=== PATIENT | male | born 1950 | race Two or more races ===

== ENCOUNTER 2020-07-28 10:45 | Inpatient (IN) | payer OTHER ==
[~2020-07-28] VITALS: Ht 165.1 cm; Wt 69.4 kg
[2020-07-28] MEDS ORDERED: TAMS0.4C PO (12:28)
[2020-07-28] MEDS ORDERED: ATORVASTATIN CA10 MG PO (12:29)
[2020-07-28] MEDS ORDERED: FINASTERIDE5 MG PO (12:29)
== END 2020-08-07 17:28 | disposition home or self-care (01) | DRG 331 ==
LOC: EDSTATUS 10:45 → ADM 10:45 → SURH 08-04 10:45 → O/R 08-04 11:30 → SURH 08-04 17:45
PROVIDERS: ADMIT Colon & Rectal Surgery; ATTEND Colon & Rectal Surgery
PROC: 0WQF0ZZ Repair Abdominal Wall, Open Approach (ICD-10-PCS; 2020-08-04)
PROC: 0DBN0ZZ Excision of Sigmoid Colon, Open Approach (ICD-10-PCS; 2020-08-04)
PROC: 0D1N0Z4 Bypass Sigmoid Colon to Cutaneous, Open Approach (ICD-10-PCS; principal; 2020-08-04 17:45)
DX: K94.09 Other complications of colostomy (principal); K43.5 Parastomal hernia without obstruction or gangrene; Z20.828 Contact with and (suspected) exposure to other viral communicable diseases; N40.0 Benign prostatic hyperplasia without lower urinary tract symptoms